=== PATIENT | female | born 1970 | race Caucasian/White ===

== ENCOUNTER → 2018-08-02 | Outpatient (CLI) | payer OTHER, BC | END | disposition home or self-care (01) | LOC: RAH 12:37 | PROVIDERS: ATTEND Family Medicine | DX: Z12.31 Encounter for screening mammogram for malignant neoplasm of breast (principal) | CPT/HCPCS: 77067 ==

== ENCOUNTER → 2018-08-17 | Outpatient (CLI) | payer OTHER, BC | END | disposition home or self-care (01) | LOC: RAH 12:40 | PROVIDERS: ATTEND Family Medicine | DX: R92.1 Mammographic calcification found on diagnostic imaging of breast (principal) | CPT/HCPCS: 76641; 77065 ==